=== PATIENT | female | born 1970 | race Caucasian/White ===

== ENCOUNTER 2021-05-13 19:27 | Emergency (ER) | payer MEDICAID ==
[~2021-05-13] VITALS: Ht 167.6 cm; Wt 65.8 kg
[2021-05-13 19:45] VITALS: BP_SYST 96
[2021-05-13] MEDS ORDERED: KETOROLAC TROMETHAMINE 30 MG VIAL IM ONE (22:45)
[2021-05-13] MEDS ORDERED: KETOROLAC TROMETHAMINE 60 MG/2 ML VIAL IM ONE (22:45)
--- NOTE | 2021-05-14 00:15 | NUR ---
Patient eloped from faility, no further tretment provided. ER aware
== END 2021-05-14 00:15 | disposition left against medical advice (07) ==
LOC: SED 19:27
DX: M25.512 Pain in left shoulder (principal); M25.522 Pain in left elbow; Z88.2 Allergy status to sulfonamides; Z79.899 Other long term (current) drug therapy
CPT/HCPCS: 96372; 99283